=== PATIENT | female | born 1965 | race Caucasian/White ===

== ENCOUNTER 2018-10-18 05:55 | Day surgery (SDC) | payer OTHER ==
[~2018-10-18 05:55] MED LIST: SYNTHROID100 MCG PO; VITAMIN D10000 UNIT PO
[2018-10-18] MEDS ORDERED: DOXYCYCLINE HY100 MG PO (09:42)
[2018-10-18] MEDS ORDERED: NAPR500T14 PO (09:43)
== END 2018-10-18 13:30 | disposition home or self-care (01) ==
LOC: CIR.AMB 05:55
DX: N84.0 Polyp of corpus uteri (principal); N95.0 Postmenopausal bleeding; D25.0 Submucous leiomyoma of uterus